=== PATIENT | female | born 1985 | race Caucasian/White ===

== ENCOUNTER 2024-03-12 00:24 | Emergency (ER) | payer MEDICAID ==
[~2024-03-12] VITALS: Ht 165.1 cm; Wt 59.0 kg
[2024-03-12] MEDS ORDERED: NAPR-1009 PO (02:29)
[2024-03-12] MEDS ORDERED: IBUPROFEN 600 MG TABLET ONE (02:31)
[2024-03-12] MEDS: IBUPROFEN 600 MG TABLET PO ONE (02:33)
[2024-03-12 02:37] VITALS: BP 107/66; O2SAT 100
== END 2024-03-12 02:37 | disposition home or self-care (01) ==
LOC: ER 00:42
DX: S93.492A Sprain of other ligament of left ankle, initial encounter (principal); Z79.899 Other long term (current) drug therapy; W17.89XA Other fall from one level to another, initial encounter; Y93.89 Activity, other specified; Y92.89 Other specified places as the place of occurrence of the external cause; Y99.8 Other external cause status
CPT/HCPCS: 73610; A4606; A4663